=== PATIENT | male | born 1975 | race Caucasian/White ===

== ENCOUNTER → 2020-09-09 12:16 | Outpatient (CLI) | payer MEDICARE, SELFPAY ==
[2020-09-09] MEDS: COVID-19 VACC, Ad26(JANSSEN)/PF 0.5 ML IM (12:25)
== END ==
PROVIDERS: PCP Student in an Organized Health Care Education/Training Program; Visit Provider Internal Medicine
DX: Z23 Encounter for immunization (principal)
CPT/HCPCS: 0031A; 91303